=== PATIENT | male | born 1945 | race Caucasian/White ===

== ENCOUNTER 2017-06-11 06:47 | Inpatient (IN) ==
[2017-06-04 11:16] LABS: Basophils % 0.3 % (0.0-0.8); Eosinophils # 0.1 10*3/uL (0.0-0.87); Eosinophils % 0.6 % (0.00-10.9); Hematocrit 46.5 VOL% (42.0-52.0); Hemoglobin 15.9 GM/DL (14.0-18.0); Immature Granulocytes % 0.4 %; Immature Granulocytes Absolute 0.04 #; Lymphocytes # 2.1 10*3/uL (1.4-4.0); Lymphocytes % 22.5 % (21.2-54.2); Mean Corpuscular HGB Conc 34.2 GM/DL (32-36); Mean Corpuscular Hemoglobin 33 PG (27-34); Mean Corpuscular Volume 95.9 FL (87-102); Mean Platelet Volume 9.1 FL (9.6-12.0); Monocytes # 0.6 10*3/uL (0.11-0.8); Monocytes % 6.6 % (1.7-12.7); Neutrophils # 6.5 10*3/uL (1.4-7.4); Neutrophils % 69.6 % (38.7-73.9); Platelet Count 217 T/CUMM (130-400); Red Blood Count 4.85 MC/CUMM (3.8-5.5); White Blood Count 9.3 T/CUMM (4-12)
[2017-06-04 11:55] LABS: Albumin 3.9 G/DL (3.4-5.0); Bilirubin,Total 0.5 MG/DL (0.2-1.0); Calcium 9.4 MG/DL (8.5-10.1); Osmolality,Calculated 281.3 MOS/KG (273-304); Total Protein 7.4 G/DL (6.4-8.3)
[~2017-06-11 06:47] MED LIST: LACTATED RINGERS 1,000 ML IV SCH; ceFAZolin 1,000 MG in SYRINGE 1 EACH IV ONE
[2017-06-11] MEDS ORDERED: DIAZEPAM 5 MG TABLET PO ONE (07:07)
[2017-06-11] MEDS ORDERED: FAMOTIDINE 20 MG TABLET PO ONE (07:07)
[2017-06-11] MEDS ORDERED: DIAZEPAM 5 MG TABLET ONE (07:20)
[2017-06-11] MEDS ORDERED: FAMOTIDINE 20 MG TABLET ONE (07:20)
[2017-06-11] MEDS ORDERED: ALBUTEROL 2.5 MG/3 ML NEB RESP TX ONE (07:26)
[2017-06-11] MEDS ORDERED: LACTATED RINGERS 1,000 ML IV SCH (07:30)
[2017-06-11] MEDS ORDERED: HEPARIN 5,000 UNIT/1 ML VIAL ONE (07:35)
[2017-06-11] MEDS ORDERED: BUPIVACAINE 0.5% 50 ML VIAL ONE (07:35)
[2017-06-11] MEDS ORDERED: THROMBIN TOPICAL (RECOMBINANT) 5,000 UNIT VIAL TOP ONE (07:36)
[2017-06-11] MEDS ORDERED: VANCOMYCIN 500 MG VIAL ONE ×2 (07:36→08:05)
[2017-06-11] MEDS ORDERED: VANCOMYCIN INJ 500 MG in SODIUM CHLORIDE 0.9% 100 ML IV ONE (08:00)
[2017-06-11] MEDS ORDERED: TISSUE ADHESIVE 1 EACH APPLICATOR TOP ONE (09:49)
[2017-06-11] MEDS ORDERED: PROPOFOL 200 MG/20 ML VIAL IV ONE (10:37)
[2017-06-11] MEDS ORDERED: fentaNYL 100 MCG/2 ML VIAL ONE (10:37)
[2017-06-11] MEDS ORDERED: MIDAZOLAM 2 MG/2 ML VIAL ONE (10:37)
[2017-06-11] MEDS ORDERED: ONDANSETRON 4 MG/2 ML VIAL ONE (10:37)
[2017-06-11] MEDS ORDERED: GLYCOPYRROLATE 0.4 MG/2 ML VIAL ONE (10:37)
[2017-06-11] MEDS ORDERED: ACETAMINOPHEN 1,000 MG/100 ML VIAL IV ONE (10:38)
[2017-06-11] MEDS ORDERED: ROCURONIUM 100 MG/10 ML VIAL IV ONE (10:38)
[2017-06-11] MEDS ORDERED: SODIUM CHLORIDE 0.9% 100 ML IV ONE (10:38)
[2017-06-11] MEDS ORDERED: SODIUM CHLORIDE 0.9% 1,000 ML IV ONE (10:38)
[2017-06-11] MEDS ORDERED: SODIUM CHLORIDE 0.9% 250 ML IV ONE (10:38)
[2017-06-11] MEDS ORDERED: NEOSTIGMINE 10 MG/10 ML VIAL ONE (10:38)
[2017-06-11] MEDS: ASPIRIN EC 81 MG TABLET PO SCH (12:44)
[2017-06-11] MEDS: METOPROLOL TARTRATE 100 MG TABLET PO SCH ×2 (12:44→19:09)
[2017-06-11] MEDS: HYDROmorphone 2 MG/1 ML VIAL IV PRN ×2 (15:20→19:17)
[2017-06-12] MEDS: METOPROLOL TARTRATE 100 MG TABLET PO SCH ×2 (00:30→08:04)
[2017-06-12 06:24] LABS: Basophils % 0.2 % (0.0-0.8); Eosinophils % 0.2 % (0.00-10.9); Hematocrit 39.9 VOL% (42.0-52.0); Hemoglobin 13.6 GM/DL (14.0-18.0); Immature Granulocytes % 0.4 %; Immature Granulocytes Absolute 0.04 #; Lymphocytes # 1.8 10*3/uL (1.4-4.0); Lymphocytes % 17.7 % (21.2-54.2); Mean Corpuscular HGB Conc 34.1 GM/DL (32-36); Mean Corpuscular Hemoglobin 33 PG (27-34); Mean Corpuscular Volume 95.7 FL (87-102); Mean Platelet Volume 9.5 FL (9.6-12.0); Monocytes % 9.5 % (1.7-12.7); Neutrophils # 7.2 10*3/uL (1.4-7.4); Platelet Count 178 T/CUMM (130-400); Red Blood Count 4.17 MC/CUMM (3.8-5.5); Red Cell Distribution Width 13.1 % (9.3-17.3)
[2017-06-12 06:48] LABS: Calcium 8.5 MG/DL (8.5-10.1); Osmolality,Calculated 272.7 MOS/KG (273-304); Potassium 3.6 MMOL/L (3.5-5.1)
[2017-06-12 07:43] VITALS: BP 154/76
[2017-06-12] MEDS: ASPIRIN EC 81 MG TABLET PO SCH (08:06)
[2017-06-12] MEDS ORDERED: MONTELUKAST 10 MG TABLET PO SCH (09:00)
[2017-06-12] MEDS ORDERED: POTASSIUM CHLORIDE 20 MEQ TABLET PO SCH (09:00)
[2017-06-12] MEDS ORDERED: ATORVASTATIN 40 MG TABLET PO SCH (09:00)
[2017-06-12] MEDS ORDERED: MAGNESIUM OXIDE 400 MG TABLET PO SCH (09:00)
[2017-06-12] MEDS ORDERED: amLODIPine 10 MG TABLET PO SCH (09:00)
[2017-06-12] MEDS ORDERED: CLOPIDOGREL 75 MG TABLET PO SCH (09:00)
[2017-06-15] MEDS ORDERED: CYANOCOBALAMIN 1000 MCG/1 ML VIAL IM SCH (09:00)
== END 2017-06-12 10:05 | disposition home or self-care (01) | DRG 254 ==
LOC: N.OR 06:47 → N.SDSINP 06:48 → N.3E 11:31 → N.OR 06-12 10:05 → N.3E 06-12 14:03
PROVIDERS: ADMIT Surgery; ATTEND Surgery